=== PATIENT | female | born 1955 | race Hispanic/Latino ===

== ENCOUNTER 2021-02-28 15:38 | Inpatient (IN) | payer MEDICARE, OTHER ==
[~2021-02-28] VITALS: Ht 167.6 cm; Wt 95.7 kg
[~2021-02-28 15:38] MED LIST: CATAFLAM PO; MEDROL4 MG/DOSE-; SKELAXIN800 MG PO; TYLENOL # 31 EA PO
[2021-02-28 17:26] LABS: BASOPHILS # (AUTO) 0.1 (0.0-0.1); BASOPHILS % 0.6 % (0.0-1.0); EOSINOPHILS # (AUTO) 1.9 (0.0-0.4); EOSINOPHILS % 13.2 % (0.0-6.0); HEMATOCRIT 44.3 % (34.2-44.1); HEMOGLOBIN 14.5 g/dL (12.0-16.0); LYMPHOCYTES # (AUTO) 2.5 (1.0-3.2); LYMPHOCYTES % 17.7 % (18.0-39.1); MEAN CORPUSCULAR HEMOGLOBIN 30.7 pg (28-32); MEAN CORPUSCULAR HGB CONC 32.7 g/dL (31-35); MEAN CORPUSCULAR VOLUME 93.7 fL (81-99); MONOCYTES # (AUTO) 1.1 (0.2-0.8); MONOCYTES % 7.5 % (4.4-11.3); NEUTROPHILS # (AUTO) 8.6 (2.1-6.9); NEUTROPHILS % 60.4 % (38.7-80.0); PLATELET COUNT 499 x10e3/uL (140-360); RED BLOOD COUNT 4.73 x10e6/uL (3.6-5.1); RED CELL DISTRIBUTION WIDTH 12.9 % (11.7-14.4)
[2021-02-28 17:54] LABS: ALBUMIN 3.8 g/dL (3.5-5.0); ALBUMIN/GLOBULIN RATIO 1.1 (0.8-2.0); ANION GAP 16.9 mmol/L (8-16); CALCIUM 8.9 mg/dL (8.4-10.2); CREATININE, SERUM 0.74 mg/dL (0.57-1.11); POTASSIUM 3.9 mmol/L (3.5-5.1)
[2021-02-28] MEDS ORDERED: SODIUM CHLORIDE 0.9% 50ML 50 ML ONE (18:21)
[2021-02-28] MEDS ORDERED: IOPAMIDOL 370 MG/ML 200 ML INFUS..BTL INJ ONE (18:21)
[2021-02-28] MEDS ORDERED: KETOROLAC TROMETHAMINE 30 MG/ML VIAL IV STA (20:15)
[2021-02-28] MEDS ORDERED: ALBUTEROL/IPRATROPIUM 3 ML NEB NEB PRN (21:30)
[2021-02-28] MEDS ORDERED: TEMAZEPAM 7.5 MG CAP PO PRN (21:30)
[2021-02-28] MEDS ORDERED: CLONIDINE HCL 0.1 MG TAB PO PRN (21:30)
[2021-02-28] MEDS ORDERED: CEFTRIAXONE 1 GM in SODIUM CHLORIDE 0.9% 50ML 50 ML IV ONE (21:30)
[2021-02-28 22:00] VITALS: BP 174/89
[2021-02-28] MEDS ORDERED: ALBUTEROL1.25 MG/3 NEB (23:11)
[2021-03-01] VITALS (8 sets, daily range): BP systolic 131–182; BP diastolic 55–83
[2021-03-01] MEDS: MORPHINE SULFATE INJ 2 MG/ML SYR IV PRN ×3 (00:29→11:59)
[2021-03-01] MEDS: ONDANSETRON HCL INJ 2MG/ML 2ML 2 MG/ML VIAL IV PRN ×3 (00:29→11:59)
[2021-03-01] MEDS: ACETAMINOPHEN/CODEINE 300MG - 30MG TAB PO PRN (04:19)
[2021-03-01 06:42] LABS: BASOPHILS # (AUTO) 0.1 (0.0-0.1); BASOPHILS % 0.6 % (0.0-1.0); EOSINOPHILS # (AUTO) 1.8 (0.0-0.4); EOSINOPHILS % 14.6 % (0.0-6.0); HEMATOCRIT 40.2 % (34.2-44.1); HEMOGLOBIN 12.9 g/dL (12.0-16.0); LYMPHOCYTES # (AUTO) 1.5 (1.0-3.2); LYMPHOCYTES % 12.2 % (18.0-39.1); MEAN CORPUSCULAR HEMOGLOBIN 30.5 pg (28-32); MEAN CORPUSCULAR HGB CONC 32.1 g/dL (31-35); MONOCYTES % 7.9 % (4.4-11.3); NEUTROPHILS % 64.3 % (38.7-80.0); PLATELET COUNT 423 x10e3/uL (140-360); RED BLOOD COUNT 4.23 x10e6/uL (3.6-5.1)
[2021-03-01 06:52] LABS: INR 0.99; PROTHROMBIN TIME 13.3 seconds (11.9-14.5)
[2021-03-01 07:05] LABS: ALBUMIN 3.1 g/dL (3.5-5.0); ANION GAP 14.3 mmol/L (8-16); CALCIUM 8.4 mg/dL (8.4-10.2); CREATININE, SERUM 0.7 mg/dL (0.57-1.11); POTASSIUM 4.3 mmol/L (3.5-5.1)
[2021-03-01 07:37] LABS: PARTIAL THROMBOPLASTIN TIME 25.6 seconds (23.8-35.5)
[2021-03-01] MEDS: ACETAMINOPHEN 325 MG TAB PO PRN ×2 (13:25→20:28)
[2021-03-01] MEDS ORDERED: LORAZEPAM 0.5 MG TAB PO PRN ×2 (13:30→13:45)
[2021-03-01] MEDS ORDERED: SODIUM CHLORIDE 0.9% 250ML 250 ML ONE (20:36)
[2021-03-01] MEDS: CEFTRIAXONE 1 GM in SODIUM CHLORIDE 0.9% 50ML 50 ML IV SCH ×2 (21:10→21:30)
[2021-03-01 22:06] LABS: EOSINOPHILS,BODY FLUID 39 %; LYMPHOCYTES,BODY FLUID 23 %; MONO/MACROPHG,BODY FLUID 18 %; NEUTROPHILS,BODY FLUID 3 %; OTHER CELLS,BODY FLUID 17 %
[2021-03-01 22:07] LABS: BODY FLUID TYPE PLEURAL
[2021-03-01 22:08] LABS: BODY FLUID APPEARANCE SL.CLOUDY; BODY FLUID COLOR YELLOW
[2021-03-01 22:10] LABS: RBC,BODY FLUID 6000 cells/uL; WBC,BODY FLUID 1354 cells/uL
[2021-03-02] VITALS (8 sets, daily range): BP systolic 112–150; BP diastolic 53–77
[2021-03-02] MEDS: ACETAMINOPHEN 325 MG TAB PO PRN ×2 (02:56→11:21)
[2021-03-02 06:28] LABS: BASOPHILS # (AUTO) 0.1 (0.0-0.1); BASOPHILS % 0.4 % (0.0-1.0); EOSINOPHILS # (AUTO) 1.3 (0.0-0.4); EOSINOPHILS % 10.1 % (0.0-6.0); HEMOGLOBIN 13.9 g/dL (12.0-16.0); LYMPHOCYTES # (AUTO) 1.6 (1.0-3.2); LYMPHOCYTES % 11.9 % (18.0-39.1); MEAN CORPUSCULAR HEMOGLOBIN 30.5 pg (28-32); MEAN CORPUSCULAR HGB CONC 32.3 g/dL (31-35); MEAN CORPUSCULAR VOLUME 94.5 fL (81-99); MONOCYTES # (AUTO) 0.8 (0.2-0.8); MONOCYTES % 6.3 % (4.4-11.3); NEUTROPHILS # (AUTO) 9.4 (2.1-6.9); NEUTROPHILS % 70.6 % (38.7-80.0); PLATELET COUNT 422 x10e3/uL (140-360); RED BLOOD COUNT 4.55 x10e6/uL (3.6-5.1); RED CELL DISTRIBUTION WIDTH 12.7 % (11.7-14.4)
[2021-03-02 06:51] LABS: CALCIUM 8.3 mg/dL (8.4-10.2); CREATININE, SERUM 0.77 mg/dL (0.57-1.11)
[2021-03-02] MEDS ORDERED: KETOROLAC TROMETHAMINE 30 MG/ML VIAL IV NR (12:30)
[2021-03-02] MEDS ORDERED: PNEUMOCOCCAL VACCINE POLYVALENT 23 MCG/0.5 ML VIAL IM SCH (14:00)
[2021-03-02] MEDS ORDERED: ATROPINE SULFATE 1 MG/ML VIAL ONE (16:32)
[2021-03-02] MEDS ORDERED: KETOROLAC TROMETHAMINE 30 MG/ML VIAL ONE (16:32)
[2021-03-02] MEDS ORDERED: PROPOFOL IV EMULSION 10 MG/ML 20 ML VIAL ONE (16:32)
[2021-03-02] MEDS ORDERED: ROCURONIUM BROMIDE 10 MG/ML 5ML VIAL IV ONE (16:32)
[2021-03-02] MEDS ORDERED: DEXAMETHASONE SOD PHOS INJ 4 MG/ML SDV ONE (16:32)
[2021-03-02] MEDS ORDERED: POVIDONE IODINE 0.05% 0.05 % ML PO ONE (16:32)
[2021-03-02] MEDS ORDERED: ONDANSETRON HCL INJ 2MG/ML 2ML 2 MG/ML VIAL ONE (16:32)
[2021-03-02] MEDS ORDERED: LIDOCAINE HCL 2% LOCAL INJ 5 ML SDV VIAL INJ ONE (16:32)
[2021-03-02] MEDS ORDERED: SEVOFLURANE INHAL SOLN 250 ML PEN BTL ONE (16:32)
[2021-03-02] MEDS ORDERED: NEOSTIGMINE 1 MG/ML 10ML VIAL ONE (16:32)
[2021-03-02] MEDS: CEFTRIAXONE 1 GM in SODIUM CHLORIDE 0.9% 50ML 50 ML IV SCH (21:23)
[2021-03-03] VITALS (7 sets, daily range): BP systolic 107–173; BP diastolic 58–81
[2021-03-03 04:45] LABS: BASOPHILS # (AUTO) 0.1 (0.0-0.1); BASOPHILS % 0.4 % (0.0-1.0); EOSINOPHILS # (AUTO) 1.4 (0.0-0.4); EOSINOPHILS % 10.1 % (0.0-6.0); HEMATOCRIT 43.1 % (34.2-44.1); LYMPHOCYTES # (AUTO) 1.4 (1.0-3.2); MEAN CORPUSCULAR HEMOGLOBIN 30.6 pg (28-32); MEAN CORPUSCULAR HGB CONC 32.5 g/dL (31-35); MEAN CORPUSCULAR VOLUME 94.3 fL (81-99); NEUTROPHILS # (AUTO) 9.8 (2.1-6.9); PLATELET COUNT 417 x10e3/uL (140-360); RED BLOOD COUNT 4.57 x10e6/uL (3.6-5.1); RED CELL DISTRIBUTION WIDTH 12.7 % (11.7-14.4)
[2021-03-03 05:08] LABS: ALBUMIN 2.8 g/dL (3.5-5.0); ALBUMIN/GLOBULIN RATIO 0.9 (0.8-2.0); ANION GAP 12.9 mmol/L (8-16); CALCIUM 8.4 mg/dL (8.4-10.2); CREATININE, SERUM 0.76 mg/dL (0.57-1.11); POTASSIUM 3.9 mmol/L (3.5-5.1)
[2021-03-03] MEDS: ACETAMINOPHEN 325 MG TAB PO PRN ×2 (10:17→19:00)
[2021-03-03] MEDS: METRONIDAZOLE 500MG/NS 100ML 100 ML IV SCH ×2 (14:37→22:02)
[2021-03-03] MEDS: KETOROLAC TROMETHAMINE 30 MG/ML VIAL IV PRN (16:52)
[2021-03-03] MEDS: LOSARTAN POTASSIUM 25 MG TAB PO SCH (22:13)
[2021-03-03] MEDS: CEFTRIAXONE 1 GM in SODIUM CHLORIDE 0.9% 50ML 50 ML IV SCH (22:58)
[2021-03-04] VITALS (7 sets, daily range): BP systolic 102–184; BP diastolic 55–87
[2021-03-04 05:12] LABS: BASOPHILS # (AUTO) 0.1 (0.0-0.1); BASOPHILS % 0.5 % (0.0-1.0); EOSINOPHILS # (AUTO) 1.3 (0.0-0.4); EOSINOPHILS % 10.4 % (0.0-6.0); HEMATOCRIT 42.4 % (34.2-44.1); HEMOGLOBIN 13.7 g/dL (12.0-16.0); LYMPHOCYTES # (AUTO) 1.6 (1.0-3.2); LYMPHOCYTES % 12.6 % (18.0-39.1); MEAN CORPUSCULAR HEMOGLOBIN 30.6 pg (28-32); MEAN CORPUSCULAR HGB CONC 32.3 g/dL (31-35); MEAN CORPUSCULAR VOLUME 94.6 fL (81-99); MONOCYTES # (AUTO) 1.1 (0.2-0.8); MONOCYTES % 8.9 % (4.4-11.3); NEUTROPHILS # (AUTO) 8.5 (2.1-6.9); NEUTROPHILS % 67.1 % (38.7-80.0); PLATELET COUNT 395 x10e3/uL (140-360); RED BLOOD COUNT 4.48 x10e6/uL (3.6-5.1); RED CELL DISTRIBUTION WIDTH 12.8 % (11.7-14.4)
[2021-03-04] MEDS: METRONIDAZOLE 500MG/NS 100ML 100 ML IV SCH ×3 (06:51→20:21)
[2021-03-04] MEDS: ACETAMINOPHEN/CODEINE 300MG - 30MG TAB PO PRN (07:06)
[2021-03-04] MEDS: ONDANSETRON HCL INJ 2MG/ML 2ML 2 MG/ML VIAL IV PRN (20:12)
[2021-03-04] MEDS: KETOROLAC TROMETHAMINE 30 MG/ML VIAL IV PRN (20:12)
[2021-03-04] MEDS: LOSARTAN POTASSIUM 25 MG TAB PO SCH (21:00)
[2021-03-04] MEDS: CEFTRIAXONE 1 GM in SODIUM CHLORIDE 0.9% 50ML 50 ML IV SCH (21:25)
[2021-03-05 00:01] VITALS: BP 104/56
[2021-03-05] MEDS: METRONIDAZOLE 500MG/NS 100ML 100 ML IV SCH ×3 (05:48→22:00)
[2021-03-05 06:00] VITALS: BP 145/61
[2021-03-05 08:01] VITALS: BP 131/58
[2021-03-05 08:30] VITALS: BP 131/58
[2021-03-05] MEDS ORDERED: LIDOCAINE HCL 2% JELLY 5 ML TUBE ONE (10:23)
[2021-03-05] MEDS ORDERED: LIDOCAINE HCL 4% 50 ML BTL ONE ×2 (10:23→10:37)
[2021-03-05] MEDS ORDERED: ACETAMINOPHEN 1000 MG/100 ML 100 ML IV ONE (12:40)
[2021-03-05 15:28] VITALS: BP 104/44
[2021-03-05] MEDS ORDERED: ESMOLOL HCL 100MG/10ML 10 MG/ML VIAL ONE (16:50)
[2021-03-05] MEDS ORDERED: PROPOFOL IV EMULSION 10 MG/ML 20 ML VIAL ONE (16:50)
[2021-03-05] MEDS ORDERED: POVIDONE IODINE 0.05% 0.05 % ML PO ONE (16:50)
[2021-03-05 19:28] VITALS: BP 144/64
[2021-03-05] MEDS: KETOROLAC TROMETHAMINE 30 MG/ML VIAL IV PRN (20:58)
[2021-03-05] MEDS: LOSARTAN POTASSIUM 25 MG TAB PO SCH (22:00)
[2021-03-05] MEDS: CEFTRIAXONE 1 GM in SODIUM CHLORIDE 0.9% 50ML 50 ML IV SCH (22:00)
[2021-03-05] MEDS: ONDANSETRON HCL INJ 2MG/ML 2ML 2 MG/ML VIAL IV PRN (22:49)
[2021-03-06] VITALS (9 sets, daily range): BP systolic 106–144; BP diastolic 56–107
[2021-03-06 05:31] LABS: BASOPHILS # (AUTO) 0.1 (0.0-0.1); BASOPHILS % 0.7 % (0.0-1.0); EOSINOPHILS # (AUTO) 1.2 (0.0-0.4); HEMATOCRIT 41.2 % (34.2-44.1); HEMOGLOBIN 13.1 g/dL (12.0-16.0); LYMPHOCYTES # (AUTO) 1.4 (1.0-3.2); LYMPHOCYTES % 13.4 % (18.0-39.1); MEAN CORPUSCULAR HEMOGLOBIN 30.8 pg (28-32); MEAN CORPUSCULAR HGB CONC 31.8 g/dL (31-35); MEAN CORPUSCULAR VOLUME 96.7 fL (81-99); MONOCYTES # (AUTO) 0.9 (0.2-0.8); MONOCYTES % 8.5 % (4.4-11.3); NEUTROPHILS # (AUTO) 7.1 (2.1-6.9); NEUTROPHILS % 65.9 % (38.7-80.0); PLATELET COUNT 392 x10e3/uL (140-360); RED BLOOD COUNT 4.26 x10e6/uL (3.6-5.1)
[2021-03-06 06:03] LABS: ALBUMIN 2.5 g/dL (3.5-5.0); ALBUMIN/GLOBULIN RATIO 0.8 (0.8-2.0); ANION GAP 13.1 mmol/L (8-16); CALCIUM 8.4 mg/dL (8.4-10.2); CREATININE, SERUM 0.72 mg/dL (0.57-1.11); POTASSIUM 4.1 mmol/L (3.5-5.1)
[2021-03-06] MEDS: METRONIDAZOLE 500MG/NS 100ML 100 ML IV SCH (06:21)
[2021-03-06] MEDS ORDERED: BUPIVACAINE 0.25% 30ML SDV ONE (09:40)
[2021-03-06] MEDS ORDERED: LIDOCAINE 1% W/EPINEPHRINE 20 ML VIAL ONE (09:40)
[2021-03-06] MEDS ORDERED: HEPARIN SOD/SOD CHLORIDE 1,000 ML ONE (09:47)
[2021-03-06 10:51] LABS: ABG HCO3 31 mmol/L (22-26); ABG PCO2 62 mmHg (35-45); ABG PO2 437 mmHg (80-105); ABG TCO2 32
[2021-03-06] MEDS: SODIUM CHLORIDE 0.9% 1000ML 1,000 ML IV SCH ×2 (12:30→21:51)
[2021-03-06] MEDS ORDERED: ACETAMINOPHEN 1000 MG/100 ML IV PRN (12:30)
[2021-03-06] MEDS ORDERED: FENTANYL CITRATE/PF 100MCG/2 ML INJ ONE (12:41)
[2021-03-06] MEDS ORDERED: HYDROMORPHONE 1MG/1ML INJ ONE (13:31)
[2021-03-06] MEDS ORDERED: ONDANSETRON HCL INJ 2MG/ML 2ML 2 MG/ML VIAL ONE (13:36)
[2021-03-06] MEDS: HYDROMORPHONE 1MG/1ML INJ IV PRN (18:15)
[2021-03-06] MEDS: LOSARTAN POTASSIUM 25 MG TAB PO SCH (21:00)
[2021-03-06] MEDS: CEFTRIAXONE 1 GM in SODIUM CHLORIDE 0.9% 50ML 50 ML IV SCH (21:51)
[2021-03-07] VITALS (10 sets, daily range): BP systolic 97–141; BP diastolic 46–72
[2021-03-07] MEDS: ONDANSETRON HCL INJ 2MG/ML 2ML 2 MG/ML VIAL IV PRN ×4 (01:06→21:50)
[2021-03-07] MEDS: HYDROMORPHONE 1MG/1ML INJ IV PRN ×4 (01:06→21:51)
[2021-03-07 10:42] LABS: BASOPHILS # (AUTO) 0.1 (0.0-0.1); BASOPHILS % 0.4 % (0.0-1.0); EOSINOPHILS # (AUTO) 0.3 (0.0-0.4); EOSINOPHILS % 1.8 % (0.0-6.0); HEMATOCRIT 41.9 % (34.2-44.1); LYMPHOCYTES # (AUTO) 1.3 (1.0-3.2); LYMPHOCYTES % 7.6 % (18.0-39.1); MEAN CORPUSCULAR HEMOGLOBIN 30.7 pg (28-32); MEAN CORPUSCULAR VOLUME 98.8 fL (81-99); MONOCYTES # (AUTO) 1.3 (0.2-0.8); MONOCYTES % 7.7 % (4.4-11.3); NEUTROPHILS # (AUTO) 13.6 (2.1-6.9); PLATELET COUNT 425 x10e3/uL (140-360); RED BLOOD COUNT 4.24 x10e6/uL (3.6-5.1)
[2021-03-07 11:10] LABS: ANION GAP 16.6 mmol/L (8-16); CALCIUM 7.9 mg/dL (8.4-10.2); CREATININE, SERUM 0.66 mg/dL (0.57-1.11); POTASSIUM 4.6 mmol/L (3.5-5.1)
[2021-03-07] MEDS: SODIUM CHLORIDE 0.9% 1000ML 1,000 ML IV SCH ×2 (14:21→18:30)
[2021-03-07] MEDS: HYDROCODONE/APAP 7.5MG-325MG 1 EA TAB PO PRN ×2 (14:54→20:23)
[2021-03-07] MEDS: LOSARTAN POTASSIUM 25 MG TAB PO SCH (21:00)
[2021-03-07] MEDS: CEFTRIAXONE 1 GM in SODIUM CHLORIDE 0.9% 50ML 50 ML IV SCH (22:58)
[2021-03-08] VITALS (11 sets, daily range): BP systolic 108–151; BP diastolic 48–67
[2021-03-08] MEDS: ONDANSETRON HCL INJ 2MG/ML 2ML 2 MG/ML VIAL IV PRN (03:30)
[2021-03-08] MEDS: HYDROMORPHONE 1MG/1ML INJ IV PRN ×2 (03:30→06:32)
[2021-03-08] MEDS: SODIUM CHLORIDE 0.9% 1000ML 1,000 ML IV SCH (04:09)
[2021-03-08 08:44] LABS: BASOPHILS # (AUTO) 0.1 (0.0-0.1); BASOPHILS % 0.4 % (0.0-1.0); EOSINOPHILS # (AUTO) 1.1 (0.0-0.4); EOSINOPHILS % 7.3 % (0.0-6.0); HEMATOCRIT 39.3 % (34.2-44.1); HEMOGLOBIN 12.3 g/dL (12.0-16.0); LYMPHOCYTES # (AUTO) 1.2 (1.0-3.2); LYMPHOCYTES % 8.4 % (18.0-39.1); MEAN CORPUSCULAR HEMOGLOBIN 30.8 pg (28-32); MEAN CORPUSCULAR HGB CONC 31.3 g/dL (31-35); MEAN CORPUSCULAR VOLUME 98.3 fL (81-99); MONOCYTES # (AUTO) 1.1 (0.2-0.8); MONOCYTES % 7.6 % (4.4-11.3); PLATELET COUNT 403 x10e3/uL (140-360); RED CELL DISTRIBUTION WIDTH 12.8 % (11.7-14.4)
[2021-03-08 09:14] LABS: ANION GAP 12.2 mmol/L (8-16); CALCIUM 7.6 mg/dL (8.4-10.2); CREATININE, SERUM 0.55 mg/dL (0.57-1.11); POTASSIUM 4.2 mmol/L (3.5-5.1)
[2021-03-08] MEDS: PROMETHAZINE 12.5MG/ NACL 0.9% 12.5 MG/50 ML BAG IV PRN (09:33)
[2021-03-08] MEDS: HYDROCODONE/APAP 7.5MG-325MG 1 EA TAB PO PRN ×3 (09:33→21:30)
[2021-03-08] MEDS ORDERED: LACTULOSE SYRUP 20 GM/30 ML UDC PO PRN (19:30)
[2021-03-08] MEDS: LOSARTAN POTASSIUM 25 MG TAB PO SCH (21:10)
[2021-03-09] VITALS (9 sets, daily range): BP systolic 97–163; BP diastolic 47–83
[2021-03-09] MEDS: ONDANSETRON HCL INJ 2MG/ML 2ML 2 MG/ML VIAL IV PRN ×4 (01:17→14:30)
[2021-03-09] MEDS: HYDROMORPHONE 1MG/1ML INJ IV PRN ×4 (02:34→20:34)
[2021-03-09 06:49] LABS: BASOPHILS # (AUTO) 0.1 (0.0-0.1); BASOPHILS % 0.7 % (0.0-1.0); EOSINOPHILS % 8.1 % (0.0-6.0); HEMATOCRIT 33.8 % (34.2-44.1); HEMOGLOBIN 10.6 g/dL (12.0-16.0); LYMPHOCYTES # (AUTO) 1.5 (1.0-3.2); LYMPHOCYTES % 12.6 % (18.0-39.1); MEAN CORPUSCULAR HEMOGLOBIN 30.7 pg (28-32); MEAN CORPUSCULAR HGB CONC 31.4 g/dL (31-35); MONOCYTES % 8.2 % (4.4-11.3); NEUTROPHILS # (AUTO) 8.3 (2.1-6.9); NEUTROPHILS % 70.1 % (38.7-80.0); PLATELET COUNT 369 x10e3/uL (140-360); RED BLOOD COUNT 3.45 x10e6/uL (3.6-5.1); RED CELL DISTRIBUTION WIDTH 12.8 % (11.7-14.4)
[2021-03-09] MEDS: HYDROCODONE/APAP 7.5MG-325MG 1 EA TAB PO PRN ×2 (07:05→18:46)
[2021-03-09 07:37] LABS: ANION GAP 11.7 mmol/L (8-16); CALCIUM 7.7 mg/dL (8.4-10.2); CREATININE, SERUM 0.54 mg/dL (0.57-1.11); POTASSIUM 3.7 mmol/L (3.5-5.1)
[2021-03-09] MEDS: PROMETHAZINE 12.5MG/ NACL 0.9% 12.5 MG/50 ML BAG IV PRN (20:33)
[2021-03-09] MEDS: LOSARTAN POTASSIUM 25 MG TAB PO SCH ×2 (20:33→21:00)
[2021-03-10] VITALS (7 sets, daily range): BP systolic 98–112; BP diastolic 44–89
[2021-03-10] MEDS: HYDROMORPHONE 1MG/1ML INJ IV PRN ×6 (01:17→22:39)
[2021-03-10] MEDS: ONDANSETRON HCL INJ 2MG/ML 2ML 2 MG/ML VIAL IV PRN ×2 (06:17→14:28)
[2021-03-10 06:52] LABS: BASOPHILS # (AUTO) 0.1 (0.0-0.1); BASOPHILS % 0.6 % (0.0-1.0); EOSINOPHILS # (AUTO) 1.1 (0.0-0.4); EOSINOPHILS % 8.7 % (0.0-6.0); HEMATOCRIT 37.2 % (34.2-44.1); HEMOGLOBIN 11.5 g/dL (12.0-16.0); LYMPHOCYTES # (AUTO) 1.5 (1.0-3.2); LYMPHOCYTES % 12.1 % (18.0-39.1); MEAN CORPUSCULAR HEMOGLOBIN 30.4 pg (28-32); MEAN CORPUSCULAR HGB CONC 30.9 g/dL (31-35); MEAN CORPUSCULAR VOLUME 98.4 fL (81-99); MONOCYTES # (AUTO) 0.9 (0.2-0.8); MONOCYTES % 7.8 % (4.4-11.3); NEUTROPHILS # (AUTO) 8.5 (2.1-6.9); NEUTROPHILS % 70.2 % (38.7-80.0); PLATELET COUNT 410 x10e3/uL (140-360); RED BLOOD COUNT 3.78 x10e6/uL (3.6-5.1); RED CELL DISTRIBUTION WIDTH 12.8 % (11.7-14.4)
[2021-03-10] MEDS: HYDROCODONE/APAP 7.5MG-325MG 1 EA TAB PO PRN (20:03)
[2021-03-11] VITALS (11 sets, daily range): BP systolic 103–133; BP diastolic 41–63
[2021-03-11] MEDS: HYDROMORPHONE 1MG/1ML INJ IV PRN ×4 (02:38→17:01)
[2021-03-11] MEDS: HYDROCODONE/APAP 7.5MG-325MG 1 EA TAB PO PRN ×3 (05:15→19:21)
[2021-03-11 08:24] LABS: BASOPHILS # (AUTO) 0.1 (0.0-0.1); BASOPHILS % 0.5 % (0.0-1.0); EOSINOPHILS # (AUTO) 0.9 (0.0-0.4); EOSINOPHILS % 8.5 % (0.0-6.0); HEMATOCRIT 34.4 % (34.2-44.1); HEMOGLOBIN 10.9 g/dL (12.0-16.0); LYMPHOCYTES # (AUTO) 1.2 (1.0-3.2); LYMPHOCYTES % 11.2 % (18.0-39.1); MEAN CORPUSCULAR HEMOGLOBIN 30.5 pg (28-32); MEAN CORPUSCULAR HGB CONC 31.7 g/dL (31-35); MEAN CORPUSCULAR VOLUME 96.4 fL (81-99); MONOCYTES # (AUTO) 0.7 (0.2-0.8); MONOCYTES % 6.5 % (4.4-11.3); NEUTROPHILS # (AUTO) 7.6 (2.1-6.9); PLATELET COUNT 441 x10e3/uL (140-360); RED BLOOD COUNT 3.57 x10e6/uL (3.6-5.1); RED CELL DISTRIBUTION WIDTH 12.6 % (11.7-14.4)
[2021-03-11 08:52] LABS: ANION GAP 11.9 mmol/L (8-16); CALCIUM 8.2 mg/dL (8.4-10.2); CREATININE, SERUM 0.54 mg/dL (0.57-1.11); POTASSIUM 3.9 mmol/L (3.5-5.1)
[2021-03-11] MEDS: ONDANSETRON HCL INJ 2MG/ML 2ML 2 MG/ML VIAL IV PRN ×2 (10:00→17:01)
[2021-03-11] MEDS ORDERED: BISACODYL 5 MG TAB EC PO PRN (15:45)
[2021-03-12 04:00] VITALS: BP 143/66
[2021-03-12] MEDS: HYDROCODONE/APAP 7.5MG-325MG 1 EA TAB PO PRN ×2 (04:10→10:25)
[2021-03-12 08:46] VITALS: BP 104/59
[2021-03-12 11:30] VITALS: BP 104/59
[2021-03-12 14:26] VITALS: BP 121/46
[2021-03-12] MEDS: HYDROCODONE/APAP 10MG-325MG TAB PO PRN ×2 (15:20→21:00)
[2021-03-12 20:00] VITALS: BP 143/65
[2021-03-13] VITALS (8 sets, daily range): BP systolic 122–149; BP diastolic 53–68
[2021-03-13] MEDS: HYDROCODONE/APAP 10MG-325MG TAB PO PRN ×2 (04:01→07:59)
[2021-03-13] MEDS: HYDROCODONE/APAP 7.5MG-325MG 1 EA TAB PO PRN ×3 (12:46→21:43)
[2021-03-14] VITALS (7 sets, daily range): BP systolic 111–146; BP diastolic 52–64
[2021-03-14] MEDS: HYDROCODONE/APAP 7.5MG-325MG 1 EA TAB PO PRN ×5 (02:00→21:39)
[2021-03-14 06:23] LABS: BASOPHILS # (AUTO) 0.1 (0.0-0.1); BASOPHILS % 0.6 % (0.0-1.0); EOSINOPHILS # (AUTO) 1.1 (0.0-0.4); EOSINOPHILS % 10.4 % (0.0-6.0); HEMATOCRIT 34.3 % (34.2-44.1); LYMPHOCYTES % 10.3 % (18.0-39.1); MEAN CORPUSCULAR HEMOGLOBIN 31.1 pg (28-32); MEAN CORPUSCULAR HGB CONC 32.1 g/dL (31-35); MEAN CORPUSCULAR VOLUME 96.9 fL (81-99); MONOCYTES # (AUTO) 0.8 (0.2-0.8); MONOCYTES % 7.8 % (4.4-11.3); NEUTROPHILS # (AUTO) 7.1 (2.1-6.9); NEUTROPHILS % 70.6 % (38.7-80.0); PLATELET COUNT 523 x10e3/uL (140-360); RED BLOOD COUNT 3.54 x10e6/uL (3.6-5.1)
[2021-03-14 06:50] LABS: ANION GAP 14.5 mmol/L (8-16); CALCIUM 8.4 mg/dL (8.4-10.2); CREATININE, SERUM 0.58 mg/dL (0.57-1.11); POTASSIUM 3.5 mmol/L (3.5-5.1)
[2021-03-14] MEDS: PROMETHAZINE HCL 25 MG TAB PO PRN (12:30)
[2021-03-15] VITALS (8 sets, daily range): BP systolic 112–138; BP diastolic 48–75
[2021-03-15] MEDS: HYDROCODONE/APAP 7.5MG-325MG 1 EA TAB PO PRN ×4 (04:45→20:44)
[2021-03-15] MEDS ORDERED: MINERAL OIL 132 ML BTL PR ONE (09:15)
[2021-03-15] MEDS ORDERED: LIDOCAINE JELLY 2% 10ML URO-JET TOP ONE (13:00)
[2021-03-15] MEDS ORDERED: CITRATE OF MAGNESIA 300ML BOTTLE PO NR (16:45)
[2021-03-16] VITALS (10 sets, daily range): BP systolic 102–130; BP diastolic 53–76
[2021-03-16] MEDS ORDERED: SODIUM CHLORIDE 0.9% 50ML 50 ML ONE (04:58)
[2021-03-16] MEDS ORDERED: IOPAMIDOL 370 MG/ML 200 ML INFUS..BTL INJ ONE (04:59)
[2021-03-16] MEDS: HYDROCODONE/APAP 7.5MG-325MG 1 EA TAB PO PRN ×3 (06:35→23:05)
[2021-03-16] MEDS: HYDROCORTISONE ACETATE 25 MG/SUPP.RECT SUPP RC SCH ×2 (09:00→17:00)
[2021-03-16] MEDS ORDERED: LIDOCAINE HCL 2% JELLY 5 ML TUBE TOP NR (09:30)
[2021-03-16] MEDS: ONDANSETRON HCL INJ 2MG/ML 2ML 2 MG/ML VIAL IV PRN (12:24)
[2021-03-16] MEDS ORDERED: HYDROCODONE/APAP 7.5MG-325MG 1 EA TAB PO NR (13:15)
[2021-03-16 13:42] LABS: BASOPHILS % 0.2 % (0.0-1.0); EOSINOPHILS # (AUTO) 0.2 (0.0-0.4); EOSINOPHILS % 1.5 % (0.0-6.0); HEMATOCRIT 37.1 % (34.2-44.1); HEMOGLOBIN 11.6 g/dL (12.0-16.0); LYMPHOCYTES # (AUTO) 0.2 (1.0-3.2); LYMPHOCYTES % 1.7 % (18.0-39.1); MEAN CORPUSCULAR HEMOGLOBIN 30.1 pg (28-32); MEAN CORPUSCULAR HGB CONC 31.3 g/dL (31-35); MEAN CORPUSCULAR VOLUME 96.1 fL (81-99); MONOCYTES # (AUTO) 0.3 (0.2-0.8); MONOCYTES % 2.3 % (4.4-11.3); NEUTROPHILS # (AUTO) 11.8 (2.1-6.9); NEUTROPHILS % 93.9 % (38.7-80.0); PLATELET COUNT 521 x10e3/uL (140-360); RED BLOOD COUNT 3.86 x10e6/uL (3.6-5.1); RED CELL DISTRIBUTION WIDTH 13.4 % (11.7-14.4)
[2021-03-16 13:58] LABS: ANION GAP 15.8 mmol/L (8-16); CALCIUM 8.1 mg/dL (8.4-10.2); CREATININE, SERUM 0.59 mg/dL (0.57-1.11); POTASSIUM 3.8 mmol/L (3.5-5.1)
[2021-03-16] MEDS: DEXTROSE 5%/0.9% SOD CHL 1,000 ML IV SCH (15:09)
[2021-03-16] MEDS: PIPERACILLIN/TAZOBACTAM 3.375 GM in SODIUM CHLORIDE 0.9% 50ML 50 ML IV SCH (17:27)
[2021-03-16] MEDS ORDERED: ACETAMINOPHEN 1000 MG/100 ML IV STA (18:17)
[2021-03-16] MEDS ORDERED: ACETAMINOPHEN 1000 MG/100 ML IV PRN (18:30)
[2021-03-16] MEDS ORDERED: LACTATED RINGER'S 1,000 ML INJ ONE (18:30)
[2021-03-16] MEDS: CLINDAMYCIN PHOS 900MG/ 50ML 50 ML IV SCH (18:51)
[2021-03-16 18:53] LABS: CLARITY,URINE SL CLOUDY (CLEAR); COLOR,URINE YELLOW (YELLOW)
[2021-03-16 18:54] LABS: KETONES,URINE NEGATIVE (NEGATIVE); LEUKOCYTE ESTERASE ,URINE NEGATIVE (NEGATIVE); NITRITE,URINE POSITIVE (NEGATIVE); PROTEIN,URINE DIPSTICK NEGATIVE (NEGATIVE); URINE UROBILINOGEN 0.2 mg/dL (0.2 - 1)
[2021-03-16 19:02] LABS: WBC,URINE (MAN) 0-5 /HPF (0-5)
[2021-03-16 19:03] LABS: BACTERIA,URINE MANY /HPF; EPITHELIAL CELLS,URINE RARE /LPF; RBC,URINE 0-5 /HPF (0-5)
[2021-03-16] MEDS: PROMETHAZINE HCL 25 MG TAB PO PRN (20:49)
[2021-03-16] MEDS: HEPARIN SOD (PORCINE) 5,000 UNIT/ML VIAL SC SCH (23:23)
[2021-03-17] VITALS (8 sets, daily range): BP systolic 106–125; BP diastolic 40–64
[2021-03-17] MEDS: PIPERACILLIN/TAZOBACTAM 3.375 GM in SODIUM CHLORIDE 0.9% 50ML 50 ML IV SCH ×4 (00:30→17:42)
[2021-03-17] MEDS: DEXTROSE 5%/0.9% SOD CHL 1,000 ML IV SCH ×3 (01:12→17:39)
[2021-03-17] MEDS: CLINDAMYCIN PHOS 900MG/ 50ML 50 ML IV SCH (06:00)
[2021-03-17] MEDS ORDERED: ACETAMINOPHEN 1000 MG/100 ML IV STA (06:06)
[2021-03-17 06:10] LABS: BASOPHILS % 0.2 % (0.0-1.0); EOSINOPHILS # (AUTO) 0.2 (0.0-0.4); EOSINOPHILS % 1.5 % (0.0-6.0); HEMATOCRIT 35.9 % (34.2-44.1); HEMOGLOBIN 11.4 g/dL (12.0-16.0); LYMPHOCYTES # (AUTO) 0.4 (1.0-3.2); LYMPHOCYTES % 2.6 % (18.0-39.1); MEAN CORPUSCULAR HEMOGLOBIN 30.6 pg (28-32); MEAN CORPUSCULAR HGB CONC 31.8 g/dL (31-35); MEAN CORPUSCULAR VOLUME 96.2 fL (81-99); MONOCYTES # (AUTO) 0.6 (0.2-0.8); MONOCYTES % 3.6 % (4.4-11.3); NEUTROPHILS % 91.4 % (38.7-80.0); PLATELET COUNT 518 x10e3/uL (140-360); RED BLOOD COUNT 3.73 x10e6/uL (3.6-5.1); RED CELL DISTRIBUTION WIDTH 13.8 % (11.7-14.4)
[2021-03-17 06:45] LABS: ALANINE AMINOTRANSFERASE 19 IU/L (0-55); ALBUMIN 1.9 g/dL (3.5-5.0); ALKALINE PHOSPHATASE 93 IU/L (40-150); ANION GAP 14.7 mmol/L (8-16); BILIRUBIN,DIRECT 0.7 mg/dL (0.0-0.5); BLOOD UREA NITROGEN 10 mg/dL (7-26); BUN/CREATININE RATIO 14 (6-25); CALCIUM 7.7 mg/dL (8.4-10.2); CARBON DIOXIDE 25 mmol/L (22-29); CHLORIDE 99 mmol/L (98-107); CREATININE, SERUM 0.71 mg/dL (0.57-1.11); EST GLOMERULAR FILTRATION RATE 83 ML/MIN (60-); GLUCOSE 148 mg/dL (74-118); MAGNESIUM 1.7 MG/DL (1.3-2.1); POTASSIUM 3.7 mmol/L (3.5-5.1); SODIUM 135 mmol/L (136-145)
[2021-03-17 06:46] LABS: LIPASE < 4 U/L (8-78)
[2021-03-17] MEDS: HYDROCORTISONE ACETATE 25 MG/SUPP.RECT SUPP RC SCH ×2 (09:00→17:00)
[2021-03-17] MEDS: HEPARIN SOD (PORCINE) 5,000 UNIT/ML VIAL SC SCH ×2 (09:05→20:16)
[2021-03-17] MEDS ORDERED: NOREPINEPHRINE 8 MG/D5W 250 ML 250 ML IV SCH (13:15)
[2021-03-17] MEDS ORDERED: NOREPINEPHRINE 8 MG/D5W 250 ML 250 ML IV PRN (15:30)
[2021-03-17] MEDS: HYDROCODONE/APAP 7.5MG-325MG 1 EA TAB PO PRN (16:06)
[2021-03-17] MEDS ORDERED: MAGNESIUM SULFATE 2GM/50ML 50 ML IV ONE (18:30)
[2021-03-17] MEDS ORDERED: POTASSIUM CHLORIDE 20MEQ/100ML 100 ML IV ONE (18:30)
[2021-03-18] VITALS (7 sets, daily range): BP systolic 116–126; BP diastolic 49–77
[2021-03-18] MEDS: ONDANSETRON HCL INJ 2MG/ML 2ML 2 MG/ML VIAL IV PRN (03:05)
[2021-03-18] MEDS: ACETAMINOPHEN 1000 MG/100 ML IV PRN ×2 (03:23→16:22)
[2021-03-18] MEDS ORDERED: PIPERACILLIN/TAZOBACTAM 3.375 GM VIAL ONE (04:40)
[2021-03-18] MEDS: PIPERACILLIN/TAZOBACTAM 3.375 GM in SODIUM CHLORIDE 0.9% 50ML 50 ML IV SCH ×5 (05:25→18:21)
[2021-03-18 06:13] LABS: BASOPHILS % 0.3 % (0.0-1.0); EOSINOPHILS # (AUTO) 0.9 (0.0-0.4); EOSINOPHILS % 7.3 % (0.0-6.0); HEMATOCRIT 30.6 % (34.2-44.1); LYMPHOCYTES # (AUTO) 0.5 (1.0-3.2); LYMPHOCYTES % 4.5 % (18.0-39.1); MEAN CORPUSCULAR HEMOGLOBIN 30.8 pg (28-32); MEAN CORPUSCULAR VOLUME 96.2 fL (81-99); MONOCYTES # (AUTO) 0.7 (0.2-0.8); MONOCYTES % 5.6 % (4.4-11.3); NEUTROPHILS # (AUTO) 9.6 (2.1-6.9); NEUTROPHILS % 81.8 % (38.7-80.0); PLATELET COUNT 452 x10e3/uL (140-360); RED BLOOD COUNT 3.18 x10e6/uL (3.6-5.1); RED CELL DISTRIBUTION WIDTH 13.6 % (11.7-14.4)
[2021-03-18 06:18] LABS: HEMOGLOBIN 9.8 g/dL (12.0-16.0)
[2021-03-18 06:53] LABS: THYROID STIMULATING HORMONE 4.186 uIU/mL (0.350-4.940)
[2021-03-18 06:57] LABS: ANION GAP 13.7 mmol/L (8-16); CALCIUM 7.2 mg/dL (8.4-10.2); CREATININE, SERUM 0.63 mg/dL (0.57-1.11); MAGNESIUM 2.1 MG/DL (1.3-2.1); POTASSIUM 3.7 mmol/L (3.5-5.1)
[2021-03-18] MEDS: HEPARIN SOD (PORCINE) 5,000 UNIT/ML VIAL SC SCH ×2 (08:53→21:00)
[2021-03-18] MEDS: HYDROCORTISONE ACETATE 25 MG/SUPP.RECT SUPP RC SCH ×2 (08:58→17:00)
[2021-03-18] MEDS ORDERED: Vancomycin IV 1 GM in SODIUM CHLORIDE 0.9% 250ML 250 ML IV ONE (10:40)
[2021-03-18] MEDS: DEXTROSE 5%/0.9% SOD CHL 1,000 ML IV SCH ×2 (10:52→16:21)
[2021-03-18] MEDS: METOPROLOL TARTRATE 25 MG TAB PO SCH (12:52)
[2021-03-18] MEDS ORDERED: GUAIFENESIN/CODEINE 5 ML LIQD PO PRN (15:00)
[2021-03-19] VITALS (8 sets, daily range): BP systolic 97–150; BP diastolic 48–82
[2021-03-19] MEDS: ACETAMINOPHEN 1000 MG/100 ML IV PRN (00:59)
[2021-03-19] MEDS: DEXTROSE 5%/0.9% SOD CHL 1,000 ML IV SCH ×2 (01:00→18:27)
[2021-03-19] MEDS: PIPERACILLIN/TAZOBACTAM 3.375 GM in SODIUM CHLORIDE 0.9% 50ML 50 ML IV SCH ×3 (03:00→19:59)
[2021-03-19 06:27] LABS: BASOPHILS % 0.2 % (0.0-1.0); EOSINOPHILS # (AUTO) 1.1 (0.0-0.4); EOSINOPHILS % 13.2 % (0.0-6.0); HEMATOCRIT 28.7 % (34.2-44.1); HEMOGLOBIN 9.2 g/dL (12.0-16.0); LYMPHOCYTES # (AUTO) 0.7 (1.0-3.2); LYMPHOCYTES % 8.4 % (18.0-39.1); MEAN CORPUSCULAR HEMOGLOBIN 30.6 pg (28-32); MEAN CORPUSCULAR HGB CONC 32.1 g/dL (31-35); MEAN CORPUSCULAR VOLUME 95.3 fL (81-99); MONOCYTES # (AUTO) 0.6 (0.2-0.8); MONOCYTES % 7.4 % (4.4-11.3); NEUTROPHILS % 70.7 % (38.7-80.0); PLATELET COUNT 425 x10e3/uL (140-360); RED BLOOD COUNT 3.01 x10e6/uL (3.6-5.1); RED CELL DISTRIBUTION WIDTH 13.5 % (11.7-14.4)
[2021-03-19 06:59] LABS: ANION GAP 8.2 mmol/L (8-16); CALCIUM 7.5 mg/dL (8.4-10.2); CREATININE, SERUM 0.52 mg/dL (0.57-1.11); POTASSIUM 3.2 mmol/L (3.5-5.1)
[2021-03-19] MEDS: HYDROCORTISONE ACETATE 25 MG/SUPP.RECT SUPP RC SCH ×2 (09:00→17:00)
[2021-03-19] MEDS: HEPARIN SOD (PORCINE) 5,000 UNIT/ML VIAL SC SCH ×2 (09:50→21:00)
[2021-03-19] MEDS: METOPROLOL TARTRATE 25 MG TAB PO SCH ×3 (09:50→21:40)
[2021-03-19] MEDS: POTASSIUM CHLORIDE 20 MEQ TAB CR PO SCH ×2 (09:50→18:26)
[2021-03-19] MEDS ORDERED: HYDROMORPHONE 1MG/1ML INJ IV STA (11:42)
[2021-03-19] MEDS: ONDANSETRON HCL INJ 2MG/ML 2ML 2 MG/ML VIAL IV PRN (11:56)
[2021-03-19] MEDS ORDERED: POTASSIUM CHLORIDE 20 MEQ TAB CR PO ONE (16:00)
[2021-03-19] MEDS: Vancomycin IV 1 GM in SODIUM CHLORIDE 0.9% 250ML 250 ML IV SCH (18:26)
[2021-03-20] VITALS (7 sets, daily range): BP systolic 99–144; BP diastolic 40–81
[2021-03-20] MEDS ORDERED: SODIUM CHLORIDE 0.9% 250ML 250 ML ONE ×2 (02:58→21:49)
[2021-03-20] MEDS: PIPERACILLIN/TAZOBACTAM 3.375 GM in SODIUM CHLORIDE 0.9% 50ML 50 ML IV SCH (03:09)
[2021-03-20] MEDS: HYDROCODONE/APAP 7.5MG-325MG 1 EA TAB PO PRN (03:19)
[2021-03-20 07:37] LABS: ANION GAP 13.1 mmol/L (8-16); BLOOD UREA NITROGEN < 5 mg/dL (7-26); CALCIUM 7.7 mg/dL (8.4-10.2); CARBON DIOXIDE 23 mmol/L (22-29); CHLORIDE 106 mmol/L (98-107); CREATININE, SERUM 0.56 mg/dL (0.57-1.11); EST GLOMERULAR FILTRATION RATE 109 ML/MIN (60-); GLUCOSE 96 mg/dL (74-118); POTASSIUM 4.1 mmol/L (3.5-5.1); SODIUM 138 mmol/L (136-145)
[2021-03-20 07:38] LABS: BUN/CREATININE RATIO 9 (6-25)
[2021-03-20] MEDS: Vancomycin IV 1 GM in SODIUM CHLORIDE 0.9% 250ML 250 ML IV SCH (08:39)
[2021-03-20] MEDS: HYDROCORTISONE ACETATE 25 MG/SUPP.RECT SUPP RC SCH ×2 (08:40→16:10)
[2021-03-20] MEDS: METOPROLOL TARTRATE 25 MG TAB PO SCH ×2 (08:44→16:28)
[2021-03-20] MEDS: HEPARIN SOD (PORCINE) 5,000 UNIT/ML VIAL SC SCH ×2 (09:06→21:30)
[2021-03-20] MEDS ORDERED: FUROSEMIDE INJ 10 MG/ML 4 ML VIAL IV ONE (09:10)
[2021-03-20] MEDS: LINEZOLID 600 MG/D5W 300ML 300 ML IV SCH ×2 (11:38→23:21)
[2021-03-20] MEDS: MEROPENEM 500 MG in SODIUM CHLORIDE 0.9% 50ML 50 ML IV SCH ×2 (14:34→22:00)
[2021-03-21] VITALS (7 sets, daily range): BP systolic 110–160; BP diastolic 45–90
[2021-03-21] MEDS: ONDANSETRON HCL INJ 2MG/ML 2ML 2 MG/ML VIAL IV PRN (01:47)
[2021-03-21] MEDS ORDERED: HYDROCODONE/APAP 7.5MG-325MG 1 EA TAB PO PRN (02:00)
[2021-03-21] MEDS: MEROPENEM 500 MG in SODIUM CHLORIDE 0.9% 50ML 50 ML IV SCH ×2 (06:00→14:00)
[2021-03-21 07:03] LABS: ALANINE AMINOTRANSFERASE 39 IU/L (0-55); ALBUMIN 1.9 g/dL (3.5-5.0); ALBUMIN/GLOBULIN RATIO 0.6 (0.8-2.0); ALKALINE PHOSPHATASE 165 IU/L (40-150); ANION GAP 13.5 mmol/L (8-16); BLOOD UREA NITROGEN < 5 mg/dL (7-26); CARBON DIOXIDE 30 mmol/L (22-29); CHLORIDE 102 mmol/L (98-107); CREATININE, SERUM 0.58 mg/dL (0.57-1.11); EST GLOMERULAR FILTRATION RATE 104 ML/MIN (60-); GLUCOSE 104 mg/dL (74-118); MAGNESIUM 1.9 MG/DL (1.3-2.1); POTASSIUM 3.5 mmol/L (3.5-5.1); SODIUM 142 mmol/L (136-145)
[2021-03-21 07:22] LABS: BUN/CREATININE RATIO 9 (6-25)
[2021-03-21] MEDS ORDERED: METOPROLOL TARTRATE 25 MG TAB PO SCH (07:30)
[2021-03-21] MEDS: HYDROCORTISONE ACETATE 25 MG/SUPP.RECT SUPP RC SCH ×2 (09:00→17:00)
[2021-03-21] MEDS ORDERED: POTASSIUM CHLORIDE 20MEQ/100ML 200 ML IV ONE (10:15)
[2021-03-21] MEDS ORDERED: FUROSEMIDE INJ 10 MG/ML 4 ML VIAL IV ONE (10:15)
[2021-03-21] MEDS ORDERED: METOCLOPRAMIDE HCL 10 MG/2ML VIAL IV PRN (10:15)
[2021-03-21] MEDS: HEPARIN SOD (PORCINE) 5,000 UNIT/ML VIAL SC SCH (10:58)
[2021-03-21] MEDS ORDERED: ACETAMINOPHEN-1 EAC3 PO (12:00)
[2021-03-21] MEDS ORDERED: AMOX TR-K CLV1 EAC2 PO (12:00)
[2021-03-21] MEDS ORDERED: PEPCID20 MG PO (12:00)
[2021-03-21] MEDS ORDERED: LOPRESSOR25 MG PO (12:00)
[2021-03-21] MEDS: LINEZOLID 600 MG/D5W 300ML 300 ML IV SCH (12:00)
== END 2021-03-21 17:26 | disposition home or self-care (01) | DRG 163 ==
LOC: ER 17:18 → ERHOLD 20:28 → MED/SURG2 22:00 → OBSVTOIN 03-02 11:57 → IMCU 03-06 13:45 → MED/SURG3 03-06 14:15 → IMCU 03-06 17:16 → MED/SURG 03-12 16:34 → IMCU 03-16 18:32 → MED/SURG 03-20 01:36
PROVIDERS: ADMIT Internal Medicine; ATTEND Internal Medicine
PROC: 0W9B3ZX Drainage of Left Pleural Cavity, Percutaneous Approach, Diagnostic (ICD-10-PCS; 2021-03-01)
PROC: 0BJ08ZZ Inspection of Tracheobronchial Tree, Via Natural or Artificial Opening Endoscopic (ICD-10-PCS; 2021-03-05)
PROC: 0BCL4ZZ Extirpation of Matter from Left Lung, Percutaneous Endoscopic Approach (ICD-10-PCS; 2021-03-06)
PROC: 0BBP4ZZ Excision of Left Pleura, Percutaneous Endoscopic Approach (ICD-10-PCS; 2021-03-06)
PROC: 0W9B40Z Drainage of Left Pleural Cavity with Drainage Device, Percutaneous Endoscopic Approach (ICD-10-PCS; 2021-03-06)
PROC: 0BCP4ZZ Extirpation of Matter from Left Pleura, Percutaneous Endoscopic Approach (ICD-10-PCS; principal; 2021-03-06 09:00)
PROC: 02HV33Z Insertion of Infusion Device into Superior Vena Cava, Percutaneous Approach (ICD-10-PCS; 2021-03-16)
DX: C38.4 Malignant neoplasm of pleura (principal); J69.0 Pneumonitis due to inhalation of food and vomit; A41.1 Sepsis due to other specified staphylococcus; R65.20 Severe sepsis without septic shock; J91.0 Malignant pleural effusion; N10 Acute pyelonephritis; I47.2 Ventricular tachycardia; Z80.3 Family history of malignant neoplasm of breast; Z80.1 Family history of malignant neoplasm of trachea, bronchus and lung; Z20.822 Contact with and (suspected) exposure to COVID-19; F41.9 Anxiety disorder, unspecified; R51.9 Headache, unspecified; I10 Essential (primary) hypertension; R03.0 Elevated blood-pressure reading, without diagnosis of hypertension; K59.00 Constipation, unspecified; E87.6 Hypokalemia; E83.42 Hypomagnesemia; B96.20 Unspecified Escherichia coli [E. coli] as the cause of diseases classified elsewhere; R21 Rash and other nonspecific skin eruption
CPT/HCPCS: 31622; 32555; 36415; 36569; 71045; 71046; 71260; 74018; 74177; 80048; 80053; 80076; 81001; 82550; 82805; 83615; 83690; 83735; 83880; 84157; 84443; 85025; 85610; 85730; 87040; 87070; 87086; 87186; 87205; 87335; 88112; 88305; 88309; 88331; 88342; 89051; 93005; 93306; 97139; 99251; 99284; G0378; J0461; J0696; J1100; J1170; J1644; J1885; J1940; J2001; J2020; J2185; J2270; J2405; J2543; J2550; J2710; J3010; J3370; J3475; J3480; J7030; J7042; J7050; J7121; Q9967; U0002

== ENCOUNTER 2022-08-03 10:50 | Emergency (ER) | payer MEDICARE ==
[~2022-08-03] VITALS: Ht 167.6 cm; Wt 95.7 kg
[~2022-08-03 10:50] MED LIST changes: +ACETAMINOPHEN-1 EAC3 PO; +ALBUTEROL1.25 MG/3 NEB; +AMOX TR-K CLV1 EAC2 PO; +LOPRESSOR25 MG PO; +PEPCID20 MG PO
[2022-08-03] MEDS ORDERED: SODIUM CHLORIDE 0.9% 1000ML 1,000 ML IV ONE (11:30)
[2022-08-03] MEDS ORDERED: ALBUTEROL/IPRATROPIUM 3 ML NEB NEB ONE (11:30)
[2022-08-03] MEDS ORDERED: METHYLPREDNISOLONE SOD SUCC 125 MG/2ML VIAL IV ONE (11:30)
[2022-08-03 11:31] LABS: BASOPHILS % 0.4 % (0.0-1.0); EOSINOPHILS # (AUTO) 0.2 (0.0-0.4); EOSINOPHILS % 2.9 % (0.0-6.0); HEMATOCRIT 38.9 % (34.2-44.1); HEMOGLOBIN 11.7 g/dL (12.0-16.0); LYMPHOCYTES % 13.9 % (18.0-39.1); MEAN CORPUSCULAR HEMOGLOBIN 32.5 pg (28-32); MEAN CORPUSCULAR HGB CONC 30.1 g/dL (31-35); MEAN CORPUSCULAR VOLUME 108.1 fL (81-99); MONOCYTES # (AUTO) 0.4 (0.2-0.8); MONOCYTES % 6.4 % (4.4-11.3); NEUTROPHILS # (AUTO) 5.3 (2.1-6.9); NEUTROPHILS % 76.1 % (38.7-80.0); PLATELET COUNT 284 x10e3/uL (140-360); RED CELL DISTRIBUTION WIDTH 15.4 % (11.7-14.4)
[2022-08-03 11:57] LABS: ALBUMIN 2.8 g/dL (3.5-5.0); ALBUMIN/GLOBULIN RATIO 0.7 (0.8-2.0); ANION GAP 10.6 mmol/L (8-16); CREATININE, SERUM 0.65 mg/dL (0.57-1.11); POTASSIUM 3.6 mmol/L (3.5-5.1)
[2022-08-03 12:03] LABS: CREATINE KINASE MB 0.6 ng/mL (0-5.0)
[2022-08-03] MEDS ORDERED: PREDNISONE50 MG PO (16:05)
[2022-08-03] MEDS ORDERED: DOXYCYCLINE HY100 MG PO (16:05)
[2022-08-03] MEDS ORDERED: PROAIR DIGIHAL90 MCG PO (16:05)
[2022-08-03] MEDS ORDERED: BENZONATATE200 MG PO (16:05)
[2022-08-03 16:25] VITALS: BP 115/77
== END 2022-08-03 16:30 | disposition home or self-care (01) ==
LOC: ER 10:56
DX: R06.02 Shortness of breath (principal); C34.90 Malignant neoplasm of unspecified part of unspecified bronchus or lung; R05.9 Cough, unspecified; J06.9 Acute upper respiratory infection, unspecified; D84.9 Immunodeficiency, unspecified; Z20.822 Contact with and (suspected) exposure to COVID-19
CPT/HCPCS: 36415; 71045; 78580; 80053; 82550; 82553; 83605; 84484; 85025; 87040; 93005; 94799; 99284; A9540; J0456; J0696; J2930; J7030; J7050; U0002